=== PATIENT | male | born 1990 | race American Indian/Alaskan Native ===

== ENCOUNTER 2018-04-28 16:13 | Emergency (ER) | payer MEDICAID ==
[2018-04-28] MEDS ORDERED: ULTRAM PO ONE (17:13)
--- NOTE | 2018-04-28 17:18 | Emergency Department Report ---
ED Extremity Problem HPI - General Chief complaint: Extremity Injury, Lower Stated complaint: LEG PAIN Time Seen by Provider: 04/28/18 17:00 Source: patient Mode of arrival: Stretcher Limitations: No Limitations - History of Present Illness Initial comments: 28-year-old male presents to ED with complaint of bilateral lower extremity pain. Patient reports history of surgery to the left femur following a fracture a few years ago. Patient states he normally has intermittent pain to the left hip. Patient states because of his left leg pain, it is causing him to put more pressure on the right leg, which is now causing pain to the right leg. The pat ient is morbidly obese. Patient is ambulatory. Patient denies swelling. MD Complaint: extremity pain -: week(s) (2) Location: bilateral lower extremity History of Same: Yes Severity scale (0 -10): 10 Quality: aching Consistency: intermittent Improves with: immobilization Worsens with: weight bearing, walking Associated Symptoms: denies: chest pain, shortness of breath - Related Data Previous Rx's Medication Instructions Recorded Last Taken Type Naproxen [Naprosyn] 500 mg PO BID #20 tablet 04/28/18 Unknown Rx traMADol [Ultram] 50 mg PO Q6HR PRN #7 tablet 04/28/18 Unknown Rx Allergies Allergy/AdvReac Type Severity Reaction Status Date / Time No Known Allergies Allergy Unverified 04/28/18 18:44 ED Review of Systems ROS: Stated complaint: LEG PAIN Other details as noted in HPI Comment: All other systems reviewed and negative Respiratory: denies: shortness of breath Cardiovascular: denies: chest pain Musculoskeletal: arthralgia. denies: joint swelling ED Past Medical Hx - Past Medical History Previous Medical History?: No - Surgical History Past Surgical History?: Yes Additional Surgical History: left leg fracture with repair, - Social History Smoking Status: Current Every Day Smoker Substance Use Type: Alcohol - Medications Home Medications: Home Medications Medication Instructions Recorded Confirmed Last Taken Type Naproxen [Naprosyn] 500 mg PO BID #20 tablet 04/28/18 Unknown Rx traMADol [Ultram] 50 mg PO Q6HR PRN #7 tablet 04/28/18 Unknown Rx ED Physical Exam - General Limitations: No Limitations General appearance: alert, in no apparent distress, obese - Head Head exam: Present: atraumatic, normocephalic - Eye Eye exam: Present: normal appearance - ENT ENT exam: Present: mucous membranes moist - Neck Neck exam: Present: normal inspection - Respiratory Respiratory exam: Present: normal lung sounds bilaterally. Absent: respiratory distress - Cardiovascular Cardiovascular Exam: Present: regular rate, normal rhythm - GI/Abdominal GI/Abdominal exam: Present: soft. Absent: distended - Extremities Exam Extremities exam: Present: full ROM, calf tenderness (mild left-sided). Absent: joint swelling - Neurological Exam Neurological exam: Present: alert, oriented X3 - Psychiatric Psychiatric exam: Present: normal affect, normal mood - Skin Skin exam: Present: warm, dry, intact, normal color ED Course Vital Signs 04/28/18 16:34 Temperature 97.8 F Pulse Rate 95 H Blood Pressure 116/66 O2 Sat by Pulse 95 Oximetry - Reevaluation(s) Reevaluation #1: 04/28/18 17:18 No vascular US available at this time ED Medical Decision Making - Lab Data Result diagrams: 04/28/18 18:07 - Medical Decision Making 28-year-old male with pain to the bilateral lower extremities. Patient denies recent trauma. History of intermittent pain since having surgery to repair femur fracture a few years ago. Patient is morbidly obese. D-dimer is negative. Likely due to chronic pain. Will give prescription for Naprosyn and Ultram. Orthopedic follow-up given. - Differential Diagnosis chronic pain, arthritis, DVT Critical care attestation.: If time is entered above; I have spent that time in minutes in the direct care of this critically ill patient, excluding procedure time. ED Disposition Clinical Impression: Bilateral lower extremity pain Disposition: DC-01 TO HOME OR SELFCARE Is pt being admited?: No Condition: Stable Instructions: Arthralgia (ED) Prescriptions: Naproxen [Naprosyn] 500 mg PO BID #20 tablet traMADol [Ultram] 50 mg PO Q6HR PRN #7 tablet PRN Reason: Pain Referrals: SYLVIE MARMOLEJO MD [Staff Physician] - 3-5 Days Time of Disposition: 18:51
[2018-04-28 18:48] LABS: BUN/Creatinine Ratio 16; Blood Urea Nitrogen 8 mg/dL (9-20); Calcium 9.2 mg/dL (8.4-10.2); Hemolysis Index 5
[2018-04-28 20:03] VITALS: BP 125/65
== END 2018-04-28 20:34 | disposition home or self-care (01) ==
LOC: ED 16:13
DX: M79.661 Pain in right lower leg (principal); M79.662 Pain in left lower leg; F17.200 Nicotine dependence, unspecified, uncomplicated
CPT/HCPCS: 36415; 80048; 85379

== ENCOUNTER 2019-08-24 04:35 | Observation (INO) | payer MEDICARE ==
--- NOTE | 2019-08-24 06:18 | XRay Report ---
CHEST 1 VIEW INDICATION / CLINICAL INFORMATION: Chest Pain. COMPARISON: None available. FINDINGS: SUPPORT DEVICES: None. HEART / MEDIASTINUM: No significant abnormality. LUNGS / PLEURA: No significant pulmonary or pleural abnormality. No pneumothorax. ADDITIONAL FINDINGS: No significant additional findings. IMPRESSION: 1. No acute findings. Signer Name: Aly Phan MD Signed: 08/24/2019 6:14 AM Workstation Name: [employer]
[2019-08-24] MEDS ORDERED: ASPIRIN 81 MG TAB CHEW PO ONE (06:56)
--- NOTE | 2019-08-24 07:00 | Emergency Department Report ---
ED Chest Pain HPI - General Chief Complaint: Chest Pain Stated Complaint: CHEST PAIN Time Seen by Provider: 08/24/19 06:50 Source: patient, EMS Mode of arrival: Stretcher Limitations: No Limitations - History of Present Illness Initial Comments: Patient is 29 years old male morbidly obese with history of hypertension and obstructive sleep apnea. Patient presented to the ER complaining of left sided chest pain, pressure in nature with radiation to the left arm. Patient stated the pain started 1 week ago, on and off and get worse last night that is why he came and checked in. Patient denied any fever or chills. Patient also denied any contact with COVID-19 patient. MD Complaint: chest pain Onset: during rest, during exertion Pain Location: left chest Pain Radiation: none Severity scale (0 -10): 4 Quality: pressure - Related Data Previous Rx's Medication Instructions Recorded Last Taken Type Naproxen [Naprosyn] 500 mg PO BID #20 tablet 04/28/18 Unknown Rx traMADoL [Ultram] 50 mg PO Q6HR PRN #7 tablet 04/28/18 Unknown Rx Allergies Allergy/AdvReac Type Severity Reaction Status Date / Time No Known Allergies Allergy Unverified 04/28/18 18:44 Heart Score - HEART Score History: Moderately suspicious EKG: Non-specific Age: < 45 Risk factors: > 3 risk factors or hx of atherosclerotic disease Troponin: < normal limit HEART Score: 4 - Critical Actions Critical Actions: 4-6 pts:12-16.6% risk of adverse cardiac event. Should be admitted ED Review of Systems ROS: Stated complaint: CHEST PAIN Other details as noted in HPI Comment: All other systems reviewed and negative Constitutional: denies: chills, fever Respiratory: denies: cough, shortness of breath Cardiovascular: chest pain Gastrointestinal: denies: abdominal pain, nausea, vomiting Musculoskeletal: denies: back pain ED Past Medical Hx - Past Medical History Previous Medical History?: Yes Hx Hypertension: Yes - Surgical History Additional Surgical History: left leg fracture with repair, - Social History Smoking Status: Never Smoker Substance Use Type: None - Medications Home Medications: Home Medications Medication Instructions Recorded Confirmed Last Taken Type Naproxen [Naprosyn] 500 mg PO BID #20 tablet 04/28/18 Unknown Rx traMADoL [Ultram] 50 mg PO Q6HR PRN #7 tablet 04/28/18 Unknown Rx ED Physical Exam - General Limitations: No Limitations General appearance: alert, in no apparent distress - Head Head exam: Present: atraumatic, normocephalic, normal inspection - Eye Eye exam: Present: normal appearance - ENT ENT exam: Present: normal exam, normal orophraynx, mucous membranes moist - Neck Neck exam: Present: normal inspection, full ROM. Absent: tenderness, meningismus - Respiratory Respiratory exam: Present: normal lung sounds bilaterally - Cardiovascular Cardiovascular Exam: Present: regular rate, normal rhythm, normal heart sounds - GI/Abdominal GI/Abdominal exam: Present: soft, normal bowel sounds. Absent: distended, tenderness, guarding, rebound, rigid, organomegaly, mass, bruit, pulsatile mass, hernia - Extremities Exam Extremities exam: Present: normal inspection, full ROM, normal capillary refill, pedal edema. Absent: tenderness, calf tenderness - Back Exam Back exam: Present: normal inspection, full ROM. Absent: CVA tenderness (R), muscle spasm - Neurological Exam Neurological exam: Present: alert, oriented X3, CN II-XII intact - Psychiatric Psychiatric exam: Present: normal mood ED Course Vital Signs 08/24/19 08/24/19 05:00 07:31 Temperature 97.8 F Pulse Rate 96 H 85 Respiratory 20 17 Rate Blood Pressure 135/66 103/68 [Left] O2 Sat by Pulse 98 100 Oximetry ED Medical Decision Making - Lab Data Result diagrams: 08/24/19 07:02 08/24/19 07:12 - EKG Data -: EKG Interpreted by Me EKG shows normal: sinus rhythm Rate: normal - EKG Data Interpretation: no acute changes - Radiology Data Radiology results: report reviewed - Medical Decision Making Patient is 29 years old male morbidly obese with history of hypertension and obstructive sleep apnea. Patient presented to the ER complaining of left sided chest pain, pressure in nature with radiation to the left arm. Patient stated the pain started 1 week ago, on and off and get worse last night that is why he came and checked in. Patient denied any fever or chills. Patient also denied any contact with COVID-19 patient. EKG showed no ST elevation or depression. Chest x-ray is unremarkable. Labs reviewed and is unremarkable including first set of troponin. Given patient multiple risk factor patient will need to be admitted to rule out coronary artery disease. I discussed the patient with Dr. Alberto, she advised to admit the patient to Dr. Ellis. Critical care attestation.: If time is entered above; I have spent that time in minutes in the direct care of this critically ill patient, excluding procedure time. ED Disposition Clinical Impression: Chest pain Disposition: OP ADMIT IP TO THIS HOSP Is pt being admited?: Yes Condition: Stable Instructions: Chest Pain (ED) Referrals: PRIMARY CARE, [Primary Care Provider] - 3-5 Days
[2019-08-24 07:45] LABS: Basophils # (Auto) 0.1 K/mm3 (0.0-0.1); Basophils % (Auto) 1.2 % (0.0-1.8); Eosinophils # (Auto) 0.1 K/mm3 (0.0-0.4); Eosinophils % (Auto) 1.4 % (0.0-4.3); Lymphocytes # (Auto) 1.8 K/mm3 (1.2-5.4); Lymphocytes % (Auto) 29.4 % (13.4-35.0); Mean Corpuscular HGB Conc 33 % (32-34); Mean Corpuscular Volume 89 fl (84-94); Monocytes # (Auto) 0.6 K/mm3 (0.0-0.8); Monocytes % (Auto) 9.9 % (0.0-7.3); Platelet Count 185 K/mm3 (140-440); Red Blood Count 4.72 M/mm3 (3.65-5.03); Red Cell Distribution Width 14.6 % (13.2-15.2)
[2019-08-24 07:46] LABS: Alanine Aminotransferase 46 units/L (7-56); Albumin 3.9 g/dL (3.9-5); BUN/Creatinine Ratio 13; Blood Urea Nitrogen 9 mg/dL (9-20); Calcium 9.3 mg/dL (8.4-10.2); Hemolysis Index 48
[2019-08-24 07:47] LABS: Bilirubin,Direct < 0.2 mg/dL (0-0.2)
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
[2019-08-24] MEDS ORDERED: ONDANSETRON 4 MG/2 ML INJ IV PRN (10:40)
[2019-08-24] MEDS ORDERED: ACETAMINOPHEN 325 MG TAB PO PRN (10:40)
[2019-08-24] MEDS ORDERED: MORPHINE 2 MG/1 ML INJ IV PRN (10:40)
[2019-08-24] MEDS ORDERED: NITROGLYCERIN 0.4 MG TAB SUBL SL PRN (10:41)
[2019-08-24 13:18] LABS: Basophils % (Auto) 0.4 % (0.0-1.8); Eosinophils # (Auto) 0.1 K/mm3 (0.0-0.4); Eosinophils % (Auto) 2.1 % (0.0-4.3); Hematocrit 41.1 % (35.5-45.6); Hemoglobin 13.6 gm/dl (11.8-15.2); Lymphocytes # (Auto) 1.6 K/mm3 (1.2-5.4); Lymphocytes % (Auto) 31.6 % (13.4-35.0); Mean Corpuscular HGB Conc 33 % (32-34); Mean Corpuscular Volume 89 fl (84-94); Monocytes # (Auto) 0.4 K/mm3 (0.0-0.8); Monocytes % (Auto) 8.6 % (0.0-7.3); Platelet Count 197 K/mm3 (140-440); Red Blood Count 4.62 M/mm3 (3.65-5.03); Red Cell Distribution Width 14.4 % (13.2-15.2)
[2019-08-24 13:35] LABS: BUN/Creatinine Ratio 10; Blood Urea Nitrogen 7 mg/dL (9-20); Calcium 9.3 mg/dL (8.4-10.2); Hemolysis Index 2
[2019-08-24 17:32] LABS: Bilirubin,Urine NEG (Negative); Blood,Urine NEG (Negative); Color,Urine Yellow (Yellow); Mucus,Urine FEW /HPF; Protein,Urine <15 mg/dL mg/dL (Negative)
[2019-08-24 18:24] LABS: Amphetamine Screen,Urine PRESUMPTIVE NEGATIVE; Benzodiazepines Screen,Urine PRESUMPTIVE NEGATIVE; Cannabinoid Screen,Urine PRESUMPTIVE NEGATIVE; Cocaine Screen,Urine PRESUMPTIVE NEGATIVE; Methadone Screen,Urine PRESUMPTIVE NEGATIVE; Opiate Screen,Urine PRESUMPTIVE NEGATIVE
[2019-08-25] MEDS ORDERED: ASPIRIN EC 325 MG TAB PO SCH (10:00)
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
--- NOTE | 2019-08-25 15:59 | Discharge Summary ---
Providers - Providers Date of Admission: 08/24/19 08:18 Date of discharge: 08/25/19 Attending physician: NAVJOT AMAYA 08/24/19 Consult to Cardiac Rehabilitation [CONS] Routine Reason For Exam: Phase I 08/24/19 13:55 Consult to Physician [CONS] Routine Comment: Consulting Provider: CRISTINO PICHARDO Physician Instructions: ] Reason For Exam: chest pain Primary care physician: PSYCHOLOGY INSTRUCTOR Hospitalization Condition: Stable Hospital course: Patient is 29 yo with hypertension, sleep apnea, morbid obesity. He presented with chest pain and shortness of breath. Chest pain was central, sharp pain, no radiation, not related to food. He also complains of shortness of breath. He has history of sleep apnea but not compliant with CPAP. Patient was seen and evaluated in Emergency Department. Initial Troponin was normal. Chest x ray was unremarkable. EKG unremarkable. He was admitted to rule out acute coronary syndrome. He was seen by cardiology who recommended july discharge home and follow as outpatient. Chest pain due to GERD, non cardiac. Disposition: TO HOME OR SELFCARE - Discharge Diagnoses (1) GERD (gastroesophageal reflux disease) Status: Acute (2) Chest pain Status: Acute Comment: Due to GERD (3) HTN (hypertension) Status: Chronic (4) Morbid obesity Status: Chronic (5) SAMANTA (obstructive sleep apnea) Status: Chronic Core Measure Documentation - Palliative Care Palliative Care/ Comfort Measures: Not Applicable - Core Measures Any of the following diagnoses?: none Exam - Constitutional Vitals: Temp Pulse Resp BP Pulse Ox 97.8 F 71 22 106/76 94 08/25/19 08:52 08/25/19 08:52 08/25/19 08:52 08/25/19 08:52 08/25/19 12:00 Plan Activity: advance as tolerated Diet: low fat, low cholesterol, low salt Additional Instructions: 1.Follow up with PCP in 1 week. 2.Follow up with Dr. Borrero, Cardiology in 1 week Follow up with: PRIMARY CAREMD [Primary Care Provider] - 3-5 Days Prescriptions: Naproxen [Naprosyn TAB] 500 mg PO BID PRN #20 tablet PRN Reason: Chest Pain
[2019-08-25 17:41] VITALS: BP 127/75
== END 2019-08-25 18:45 | disposition home or self-care (01) ==
LOC: ED 04:35 → INTOOBSV 08:18 → 4A 08:18
PROVIDERS: ADMIT Internal Medicine; ATTEND Internal Medicine
DX: R07.89 Other chest pain (principal); I10 Essential (primary) hypertension; G47.30 Sleep apnea, unspecified; E66.01 Morbid (severe) obesity due to excess calories; Z79.82 Long term (current) use of aspirin; Z86.711 Personal history of pulmonary embolism; Z98.890 Other specified postprocedural states; Z91.19 Patient's noncompliance with other medical treatment and regimen
CPT/HCPCS: 36415; 71045; 80048; 80076; 80307; 81001; 83880; 84484; 85025; 85379; 93005; 93306; 94660; 99285; G0378